=== PATIENT | female | born 2000 | race Caucasian/White ===

== ENCOUNTER 2019-11-18 16:03 | Emergency (ER) | payer BC ==
[~2019-11-18] VITALS: Ht 162.6 cm; Wt 84.0 kg
[2019-11-18] MEDS ORDERED: LIDOCAINE HCL/PF 1% 10 MG/ML 5ML VIAL IJ STA (20:52)
[2019-11-18] MEDS ORDERED: IBUPROFEN 600MG TABLET PO ONE (21:00)
[2019-11-18] MEDS ORDERED: BACITRACIN ZINC OINT UDPKT TOP ONE (21:00)
[2019-11-18 22:44] VITALS: BP 115/75
== END 2019-11-18 22:45 | disposition home or self-care (01) ==
LOC: ER 16:03
DX: S61.213A Laceration without foreign body of left middle finger without damage to nail, initial encounter (principal); W23.0XXA Caught, crushed, jammed, or pinched between moving objects, initial encounter; Y93.89 Activity, other specified; Y92.89 Other specified places as the place of occurrence of the external cause; Y99.8 Other external cause status
CPT/HCPCS: 12001; 73140; 99283; J3490; Z7610

== ENCOUNTER 2025-09-23 02:56 | Emergency (ER) | payer BC ==
[~2025-09-23] VITALS: Ht 167.6 cm; Wt 111.0 kg
[2025-09-23] MEDS: PREDNISONE 20MG TABLET PO ONE (03:36)
[2025-09-23] MEDS: AZITHROMYCIN 500 MG TABLET PO ONE (03:36)
[2025-09-23 03:45] LABS: BASOPHILS % 0.9 % (0.0-2.0); EOSINOPHILS % 3.0 % (0.0-5.0); HEMATOCRIT. 40.6 % (36.0-48.0); HEMOGLOBIN. 13.0 g/dL (12.0-16.0); LYMPHOCYTES % 32.0 % (20.0-50.0); MEAN PLATELET VOLUME 7.2 fl (7.4-10.4); MONOCYTES % 4.9 % (2.0-8.0); NEUTROPHILS % 59.2 % (40.0-76.0); PLATELET 406 x1000/uL (130-400); RED BLOOD CELL COUNT 4.87 mill/uL (4.2-5.4); RED CELL DISTRIBUTION WIDTH 14.4 % (11.6-14.6)
[2025-09-23 03:47] LABS: CREATININE 0.9 mg/dL (0.6-1.0); HCG SCREEN NEGATIVE
[2025-09-23 03:48] LABS: PROTEIN TOTAL 7.1 g/dL (6.0-8.3); UREA NITROGEN BLOOD 12 mg/dL (9-23)
[2025-09-23 03:49] LABS: ASPARTATE AMINOTRANSFERASE 26 IU/L (<34); TROPONIN I HIGH SENSITIVITY < 4 ng/L (3.0-34)
[2025-09-23 03:50] LABS: BILIRUBIN DIRECT < 0.1 mg/dL (<=3.0); BILIRUBIN TOTAL 0.3 mg/dL (0.1-1.0)
[2025-09-23 04:05] VITALS: PULSE 76; RESP 18; O2SAT 97
[2025-09-23] MEDS ORDERED: P50 MT (04:05)
[2025-09-23] MEDS ORDERED: GUAI237L83 MT (04:05)
[2025-09-23] MEDS ORDERED: AZIT250T12 MT (04:05)
[2025-09-23] MEDS: ALBUTEROL (0.083%) 2.5MG/3ML NEB HHN ONE (04:05)
[2025-09-23] MEDS ORDERED: ALBU18HF2 IH (04:05)
[2025-09-23 04:20] VITALS: BP 107/69; PULSE 85; RESP 17; TEMP 36.6; O2SAT 98
== END 2025-09-23 04:24 | disposition home or self-care (01) ==
LOC: ER 02:56
DX: J20.9 Acute bronchitis, unspecified (principal); J45.909 Unspecified asthma, uncomplicated; R06.02 Shortness of breath; Z79.899 Other long term (current) drug therapy
CPT/HCPCS: 80076; 80048; 84703; 83880; 83735; 85025; 84484; 36415; 71045; 94640; 99284; J7512; Z7610 ×3; 94070; 94664; 99285